=== PATIENT | male | born 1990 | race Two or more races ===

== ENCOUNTER 2019-06-29 13:04 | Emergency (ER) | payer MEDICAID, OTHER ==
[~2019-06-29] VITALS: Ht 172.7 cm; Wt 134.1 kg
[~2019-06-29 13:04] MED LIST: HYDR-3972 PO; IBUP-1986 PO; LIDOcaine 1% W/epiNEPHrine 1:100,000 20ml vial ONE; NO HOME MEDS
[2019-06-29] MEDS ORDERED: bacitracin 15gm ointment TP ONE (14:30)
[2019-06-29] MEDS ORDERED: ketorolac trometh inj. 60 MG/2 ML VIAL IM ONE (14:30)
[2019-06-29] MEDS ORDERED: TETanus/Pertussis (Acell)/Diphther VAC/PF (Tdap-Adult) 0.5ml syringe IMVAC ONE (14:30)
[2019-06-29 16:33] VITALS: BP 144/96
== END 2019-06-29 16:13 | disposition home or self-care (01) ==
LOC: ER 13:05
DX: S81.811A Laceration without foreign body, right lower leg, initial encounter (principal); I10 Essential (primary) hypertension; E11.9 Type 2 diabetes mellitus without complications; Z79.899 Other long term (current) drug therapy; W26.8XXA Contact with other sharp object(s), not elsewhere classified, initial encounter; Y93.89 Activity, other specified; Y92.89 Other specified places as the place of occurrence of the external cause; Y99.8 Other external cause status
CPT/HCPCS: 12002; 90471; 90715; 96372; 99284; J1885

== ENCOUNTER 2019-07-07 04:24 | Emergency (ER) | payer OTHER ==
[~2019-07-07] VITALS: Ht 172.7 cm; Wt 134.0 kg
[~2019-07-07 04:24] MED LIST changes: -LIDOcaine 1% W/epiNEPHrine 1:100,000 20ml vial ONE
[2019-07-07 04:27] VITALS: BP 161/86
[2019-07-07] MEDS ORDERED: SULF1TAB49 PO (04:43)
[2019-07-07] MEDS ORDERED: CEPH500C5 PO (04:43)
== END 2019-07-07 04:57 | disposition home or self-care (01) ==
LOC: ER 04:24
DX: L08.9 Local infection of the skin and subcutaneous tissue, unspecified (principal); S81.811D Laceration without foreign body, right lower leg, subsequent encounter; I10 Essential (primary) hypertension; E11.9 Type 2 diabetes mellitus without complications; Z79.2 Long term (current) use of antibiotics; Z79.899 Other long term (current) drug therapy; W26.8XXA Contact with other sharp object(s), not elsewhere classified, initial encounter
CPT/HCPCS: 99283

== ENCOUNTER 2019-09-07 20:55 | Emergency (ER) | payer BC ==
[~2019-09-07] VITALS: Ht 172.7 cm; Wt 115.9 kg
--- NOTE | 2019-09-07 21:21 | NUR ---
DR MONTELONGO TO PERFORM ULTRA SOUND HIMSELF AT BEDSIDE
[2019-09-07] MEDS ORDERED: AMOX-422 PO (21:30)
[2019-09-07] MEDS ORDERED: SULF1TAB49 PO (21:30)
[2019-09-07] MEDS ORDERED: FLUC150T22 PO (21:30)
[2019-09-07] MEDS ORDERED: fluconazole 150mg tablet PO ONE (21:30)
[2019-09-07] MEDS ORDERED: amox tr/potassium clavulanate 875/125mg TAB PO ONE (21:30)
[2019-09-07] MEDS ORDERED: sulfamethoxazole/trimethoprim DS (800/160mg) tablet PO ONE (21:30)
[2019-09-07 21:44] VITALS: BP 187/101
== END 2019-09-07 21:47 | disposition home or self-care (01) ==
LOC: ER 20:56
DX: L02.11 Cutaneous abscess of neck (principal); I10 Essential (primary) hypertension; E11.9 Type 2 diabetes mellitus without complications; F17.200 Nicotine dependence, unspecified, uncomplicated; F12.10 Cannabis abuse, uncomplicated; Z90.89 Acquired absence of other organs; Z79.899 Other long term (current) drug therapy
CPT/HCPCS: 99284

== ENCOUNTER 2022-05-14 06:52 | Emergency (ER) | payer BC ==
[~2022-05-14] VITALS: Ht 330.2 cm; Wt 100.0 kg
[2022-05-14 06:55] VITALS: BP 159/110
== END 2022-05-14 09:44 | disposition left against medical advice (07) ==
LOC: ER 06:52
DX: R10.9 Unspecified abdominal pain (principal); R11.10 Vomiting, unspecified; Z53.21 Procedure and treatment not carried out due to patient leaving prior to being seen by health care provider

== ENCOUNTER 2023-09-28 16:35 | Emergency (ER) | payer BC ==
[~2023-09-28] VITALS: Ht 170.2 cm; Wt 91.4 kg
[2023-09-28 18:00] LABS: BASOPHILS # (AUTO) 0.1 X10'3 (0-0.2); BASOPHILS % (AUTO) 0.7 % (0-1); EOSINOPHILS # (AUTO) 0.2 X10'3 (0-0.9); EOSINOPHILS % (AUTO) 1.7 % (0-6); HEMATOCRIT 46.5 % (42.0-52.0); HEMOGLOBIN 15.8 g/dl (14.0-17.9); LYMPHOCYTES % (AUTO) 20.3 % (21-51); MEAN CORPUSCULAR HEMOGLOBIN 29.2 PG (27.0-31.0); MEAN CORPUSCULAR VOLUME 86.1 FL (78-98); MEAN PLATELET VOLUME 8.6 FL (7.4-10.4); MONOCYTES # (AUTO) 0.8 X10'3 (0-0.9); MONOCYTES % (AUTO) 7.9 % (2-12); NEUTROPHILS # (AUTO) 6.7 X10'3 (1.8-7.7); NEUTROPHILS % (AUTO) 69.4 % (42-75); PLATELET COUNT 233 X10'3 (140-440); RED BLOOD COUNT 5.39 X10'6 (4.70-6.10); RED CELL DISTRIBUTION WIDTH 13.7 % (11.5-14.5); WHITE BLOOD COUNT 9.7 X10'3 (4.5-11.0)
[2023-09-28 18:10] LABS: ALANINE AMINOTRANSFERASE 24 U/L (12-78); ALBUMIN 4.2 G/DL (3.4-5.0); ALBUMIN/GLOBULIN RATIO 1.4 (1.1-1.5); ALKALINE PHOSPHATASE 56 IU/L (46-116); ANION GAP 7 (8-16); ASPARTATE AMINO TRANSFERASE 18 U/L (10-37); BILIRUBIN,TOTAL 0.8 MG/DL (0.1-1.0); BLOOD UREA NITROGEN 13 MG/DL (7-18); BUN/CREATININE RATIO 15.9 (10.0-20.0); CALCIUM 8.9 MG/DL (8.5-10.1); CHLORIDE 106 MMOL/L (99-107); CREATININE 0.82 MG/DL (0.60-1.10); GLUCOSE 130 MG/DL (70-104); LIPASE 29 U/L (16-77); SODIUM 142 MMOL/L (135-145); TOTAL CARBON DIOXIDE 28.8 MMOL/L (24-32); TOTAL PROTEIN 7.3 G/DL (6.4-8.2); eCRCL 120 ML/MIN; eGFR > 90 ML/MIN
[2023-09-28] MEDS: ondansetron/PF 4mg/2ml inj IV ONE (19:05)
[2023-09-28] MEDS: morphine 4 MG/ML inj SYRINge IV ONE (19:06)
[2023-09-28] MEDS ORDERED: iohexol 300mg/ml 100ml inj. ONE (19:09)
[2023-09-28] MEDS: diphenhydrAMINE 50 mg/ml inj IV ONE (19:43)
[2023-09-28] MEDS: ketorolac trometh. 30mg/ml inj. IV ONE (19:43)
[2023-09-28] MEDS: haloperidol lactate 5mg/ml inj IM ONE (19:43)
[2023-09-28] MEDS: normal saline 1000ml 1,000 ML IV ONE (19:47)
[2023-09-28 20:09] LABS: BILIRUBIN,URINE NEGATIVE (Neg); CLARITY,URINE SLIGHTLY CLOUDY (Clear); COLOR,URINE YELLOW (Yellow); GLUCOSE, URINE NEGATIVE (Neg); KETONES,URINE 15 mg/dl (Neg); LEUKOCYTE ESTERASE ,URINE NEGATIVE (Neg); NITRITES, URINE NEGATIVE (Neg); OCCULT BLOOD,URINE NEGATIVE (Neg); PROTEIN,URINE NEGATIVE (Neg); UROBILINOGEN,URINE 0.2 E.U/dL (0.2-1.0)
[2023-09-28 20:18] LABS: UA COLLECTION TYPE CLN CATCH MIDSTREAM
[2023-09-28 20:19] LABS: SQUAMOUS EPITHELIAL CELL,UR NONE SEEN /LPF (FEW)
[2023-09-28 20:20] LABS: RBC,URINE 0-2 /HPF (0-2); WBC,URINE 0-4 /HPF (0-4)
[2023-09-28 20:21] LABS: AMORPHOUS PHOSPHATES 2+
[2023-09-28 20:22] LABS: BACTERIA,URINE 1+ /HPF (Neg)
[2023-09-28 20:52] LABS: URINE AMPHETAMINE SCREEN NEGATIVE (Neg); URINE BARBITUATE SCREEN NEGATIVE (Neg); URINE BENZODIAZEPINES SCREEN NEGATIVE (Neg); URINE CANNABINOID SCREEN POSITIVE (Neg); URINE COCAINE SCREEN NEGATIVE (Neg); URINE METHADONE SCREEN NEGATIVE (Neg); URINE OPIATE SCREEN POSITIVE (Neg); URINE PHENCYCLIDINE SCREEN NEGATIVE (Neg)
[2023-09-28] MEDS ORDERED: DICY-19 PO (20:57)
[2023-09-28] MEDS ORDERED: OMEP40CA21 PO (20:57)
[2023-09-28 21:51] VITALS: BP 178/83; PULSE 74; RESP 16; TEMP 98.6; O2SAT 99
== END 2023-09-28 21:51 | disposition home or self-care (01) ==
LOC: ER 16:36
DX: K29.00 Acute gastritis without bleeding (principal); Z72.89 Other problems related to lifestyle; I10 Essential (primary) hypertension; E11.9 Type 2 diabetes mellitus without complications; F12.90 Cannabis use, unspecified, uncomplicated; Z98.890 Other specified postprocedural states
CPT/HCPCS: 36415; 74177; 80053; 80305; 81001; 83690; 85025; 96361; 96372; 96374; 96375; 99285; J1200; J1630; J1885; J2270; J2405; J3490; J7030; Q9967